=== PATIENT | female | born 1960 | race Two or more races ===

== ENCOUNTER 2017-06-10 17:02 | Emergency (ER) | payer SELFPAY ==
[~2017-06-10] VITALS: Ht 165.1 cm; Wt 77.1 kg
[2017-06-10 17:07] VITALS: BP 108/65
[2017-06-10] MEDS ORDERED: Morphine Sulfate 4mg/ml Inj IVP ONE (17:30)
[2017-06-10 17:56] LABS: APPEARANCE,URINE CLEAR; BILIRUBIN, URINE 1+ (NEGATIVE); GLUCOSE, URINE (UA) NEGATIVE (NEGATIVE); KETONES,URINE NEGATIVE (NEGATIVE); LEUKOCYTE ESTERASE ,URINE 3+ (NEGATIVE); NITRITE,URINE NEGATIVE (NEGATIVE); PH,URINE 6 (4.5-8.0); PROTEIN,URINE NEGATIVE (NEGATIVE); UROBILINOGEN,URINE 1 MG/DL (0.0-1.0)
[2017-06-10 17:58] LABS: BASOPHILS % (AUTO) 0.6 % (0.0-2.0); EOSINOPHILS % (AUTO) 0.6 % (0.0-3.0); HEMATOCRIT 43.7 % (37.0-47.0); HEMOGLOBIN 13.8 G/DL (12.0-16.0); LYMPHOCYTES % (AUTO) 9.5 % (20.0-45.0); MEAN CORPUSCULAR VOLUME 91 FL (80-99); MONOCYTES % (AUTO) 5.5 % (1.0-10.0); NEUTROPHILS % (AUTO) 83.7 % (45.0-75.0); PLATELET COUNT 180 K/UL (150-450); RED CELL DISTRIBUTION WIDTH 12.4 % (11.6-14.8); WHITE BLOOD COUNT 13.2 K/UL (4.8-10.8)
[2017-06-10 18:00] LABS: COLOR,URINE AMBER
[2017-06-10 18:14] LABS: INR 0.9 (0.9-1.1)
[2017-06-10 18:31] LABS: ANION GAP 11 mmol/L (5-15); BLOOD UREA NITROGEN 5 mg/dL (7-18); CALCIUM 9.2 MG/DL (8.5-10.1); CARBON DIOXIDE 26 MMOL/L (21-32); CHLORIDE 102 MMOL/L (98-107); CREATININE 0.7 MG/DL (0.55-1.30); POTASSIUM 3.6 MMOL/L (3.5-5.1); SODIUM 139 MMOL/L (136-145)
[2017-06-10 18:41] LABS: ALANINE AMINOTRANSFERASE 235 U/L (12-78); ALBUMIN 3.5 G/DL (3.4-5.0); ALBUMIN/GLOBULIN RATIO 0.8 (1.0-2.7); ALKALINE PHOSPHATASE 242 U/L (46-116); ASPARTATE AMINO TRANSFERASE 122 U/L (15-37)
[2017-06-10] MEDS ORDERED: cefTRIAXone 1 GM in NS 55 ML IVPB ONE (18:45)
[2017-06-10 18:46] LABS: BILIRUBIN,DIRECT 5.4 MG/DL (0.0-0.3)
[2017-06-10] MEDS ORDERED: NORCO 5-325 TA1 EAC1 ORAL (21:52)
[2017-06-10] MEDS ORDERED: CEPHALEXIN500 MG ORAL (21:52)
[2017-06-10] MEDS ORDERED: ZOFRAN4 M3 ORAL (21:52)
[2017-06-10] MEDS ORDERED: Zosyn 3.375gm/50ml Premix 50 ML IVPB ONE (22:00)
[2017-06-10 22:21] VITALS: BP 108/65
--- NOTE | 2017-06-10 22:46 | Emergency Room Report ---
History of Present Illness General Chief Complaint: Abdominal Pain Source: Patient, Family Member Present Illness HPI The patient is a 57 old female presenting for abdominal pain. She states that the pain began approximately one hour prior to arrival. Described as a 9/10 dull ache across the upper abdomen. No known provoking relieving factors. Pain does not radiate. It is constant. Has had cholecystectomy years prior. She denies any other symptoms including N, V, F, chills, diarrhea, constipation, rash, CP, SOB, back pain Allergies: Coded Allergies: No Known Allergies (Unverified , 06/10/17) Patient History Past Medical History: see triage record Past Surgical History: juan jose Pertinent Family History: none Reviewed Nursing Documentation: PMH: Agreed, PSxH: Agreed Nursing Documentation-PMH Past Medical History: No Stated History Review of Systems All Other Systems: negative except mentioned in HPI Physical Exam Vital Signs Date Time Temp Pulse Resp B/P (MAP) Pulse Ox O2 Delivery O2 Flow Rate FiO2 06/10/17 17:07 97.5 75 18 108/65 98 Room Air Sp02 EP Interpretation: reviewed, normal General Appearance: no apparent distress, alert, GCS 15, non-toxic Head: normocephalic, atraumatic Eyes: bilateral eye normal inspection, bilateral eye PERRL ENT: hearing grossly normal, normal pharynx, no angioedema, normal voice Neck: full range of motion, supple/symm/no masses Respiratory: chest non-tender, lungs clear, normal breath sounds, speaking full sentences Cardiovascular #1: regular rate, rhythm, no edema Gastrointestinal: normal bowel sounds, soft, no mass, no guarding, tenderness - RUQ, Epigastric, and LUQ Rectal: deferred Genitourinary: normal inspection, no CVA tenderness Musculoskeletal: back normal, gait/station normal, normal range of motion, non- tender Neurologic: alert, oriented x3, responsive, motor strength/tone normal, sensory intact, speech normal Psychiatric: judgement/insight normal, memory normal, mood/affect normal, no suicidal/homicidal ideation Skin: normal color, no rash, warm/dry, well hydrated Lymphatic: no adenopathy Medical Decision Making PA Attestation Dr. Acharya is my supervising physician. Patient management was discussed with my supervising physician Diagnostic Impression: Primary Impression: Urinary tract infection Qualified Codes: N30.01 - Acute cystitis with hematuria Additional Impression: Choledocholithiasis with obstruction ER Course The patient is a 57 old female presenting for abdominal pain. Differential diagnoses considered include but not limited to hepatitis, cholecystitis, gastritis, pancreatitis, appendicitis, UTI PE: Afebrile. NAD Abdomen is soft. Normal bowel sounds. Nondistended. There is tenderness to palpation across the upper abdomen of the left upper quadrant, epigastric, and right upper quadrant regions. No guarding. No CVA tenderness labs: CBC shows leukocytosis. CMP shows elevated AST and ALT. Elevated alk phos. UA consistent with UTI US: Hepatomegaly with echotexture. S/p cholecystectomy. Mild biliary dilatation , CBD 1.2cm. No calculi seen. CT: Hepatomegaly. Status post previous cholecystectomy. Mild intrahepatic and extrahepatic biliary dilatation which is of uncertain etiology. No radiopaque calculus or focal mass identified. The patient is given IV fluids, IV abx, and pain medication and is feeling better. She was told she needs to be admitted for further care and evaluation. She has declined being admitted. I used communication instructor service ID # [id number] for [place]i to [place] interpretation. I informed the patient of these results and the urgency of the matter. I informed her of risks of leaving including organ damage, organ failure, worsening infection, and . She still is asking to leave AMA. She is given prescriptions for antibiotics and zofran and needs emergent treatment. She is given ER precautions and told to return to any ER if she changes her mind as soon as possible. Laboratory Tests Test 06/10/17 17:30 White Blood Count 13.2 K/UL (4.8-10.8) H Red Blood Count 4.80 M/UL (4.20-5.40) Hemoglobin 13.8 G/DL (12.0-16.0) Hematocrit 43.7 % (37.0-47.0) Mean Corpuscular Volume 91 FL (80-99) Mean Corpuscular Hemoglobin 28.8 PG (27.0-31.0) Mean Corpuscular Hemoglobin Concent 31.6 G/DL (32.0-36.0) L Red Cell Distribution Width 12.4 % (11.6-14.8) Platelet Count 180 K/UL (150-450) Mean Platelet Volume 9.0 FL (6.5-10.1) Neutrophils (%) (Auto) 83.7 % (45.0-75.0) H Lymphocytes (%) (Auto) 9.5 % (20.0-45.0) L Monocytes (%) (Auto) 5.5 % (1.0-10.0) Eosinophils (%) (Auto) 0.6 % (0.0-3.0) Basophils (%) (Auto) 0.6 % (0.0-2.0) Prothrombin Time 9.9 SEC (9.30-11.50) Prothrombin Time INR 0.9 (0.9-1.1) PTT 29 SEC (23-33) Urine Color Brenna Urine Appearance Clear Urine pH 6 (4.5-8.0) Urine Specific [place] 1.010 (1.005-1.035) Urine Protein Negative (NEGATIVE) Urine Glucose (UA) Negative (NEGATIVE) Urine Ketones Negative (NEGATIVE) Urine Occult Blood 4+ (NEGATIVE) H Urine Nitrite Negative (NEGATIVE) Urine Bilirubin 1+ (NEGATIVE) H Urine Ictotest Positive Urine Urobilinogen 1 MG/DL (0.0-1.0) H Urine Leukocyte Esterase 3+ (NEGATIVE) H Urine RBC 2-4 /HPF (0 - 2) H Urine WBC Tntc /HPF (0 - 2) H Urine Squamous Epithelial Cells Occasional /LPF Urine Bacteria Few /HPF (NONE) Sodium Level 139 MMOL/L (136-145) Potassium Level 3.6 MMOL/L (3.5-5.1) Chloride Level 102 MMOL/L (98-107) Carbon Dioxide Level 26 MMOL/L (21-32) Anion Gap 11 mmol/L (5-15) Blood Urea Nitrogen 5 mg/dL (7-18) L Creatinine 0.7 MG/DL (0.55-1.30) Estimate Glomerular Filtration Rate > 60 mL/min (>60) Glucose Level 137 MG/DL (74-106) H Calcium Level 9.2 MG/DL (8.5-10.1) Total Bilirubin 6.0 MG/DL (0.2-1.0) H Direct Bilirubin 5.4 MG/DL (0.0-0.3) H Aspartate Amino Transferase (AST) 122 U/L (15-37) H Alanine Aminotransferase (ALT) 235 U/L (12-78) H Alkaline Phosphatase 242 U/L (46-116) H Total Protein 7.9 G/DL (6.4-8.2) Albumin 3.5 G/DL (3.4-5.0) Globulin 4.4 g/dL Albumin/Globulin Ratio 0.8 (1.0-2.7) L Lipase 121 U/L (73-393) Lab Results Impression CBC shows leukocytosis. CMP shows elevated AST and ALT. Elevated alk phos. UA consistent with UTI CT/MRI/US Diagnostic Results CT/MRI/US Diagnostic Results #1: Imaging Test Ordered: Abd US Impression Hepatomegaly with echotexture. S/p cholecystectomy. Mild biliary dilatation, CBD 1.2cm. No calculi seen. CT/MRI/US Diagnostic Results #2: Imaging Test Ordered: CT Abd/pelvis Impression Comparison: None available Bibasilar dependent atelectasis. Hepatomegaly. Status post previous cholecystectomy. Mild intrahepatic and extrahepatic biliary dilatation which is of uncertain etiology. No radiopaque calculus or focal mass identified. Pancreas and spleen are unremarkable. No evidence of renal calculi or hydronephrosis. Small right upper pole renal cyst. Urinary bladder is unremarkable. No bladder calculi. Post surgical changes along the anterior abdominal wall. No evidence of bowel obstruction or pneumoperitoneum. No abnormal inflammatory changes or fluid collections. Appendix is unremarkable. No evidence of abdominal aortic aneurysm. Last Vital Signs Date Time Temp Pulse Resp B/P (MAP) Pulse Ox O2 Delivery O2 Flow Rate FiO2 06/10/17 22:21 97.5 75 18 108/65 98 Room Air Status: improved Disposition: AGAINST MEDICAL ADVICE Condition: Serious Scripts Ondansetron* (ZOFRAN*) 4 Mg Tablet 4 MG ORAL Q6H Y for Nausea & Vomiting, #15 TAB Prov: YESSICA SANCHEZA. 06/10/17 Cephalexin* (KEFLEX*) 500 Mg Capsule 500 MG ORAL EVERY 12 HOURS, #14 CAP 0 Refills Prov: YESSICA SANCHEZ 06/10/17 Patient Instructions: Urinary Tract Infection, Abdominal Pain, Adult, Jaundice , Adult Additional Instructions: I have informed the patient of the risks associated with leaving AGAINST MEDICAL ADVICE including worsening infection, organ damage, organ failure, and even with communication instructor. Please return to the emergency department if you change your mind. YESSICA SANCHEZ Jun 10, 2017 22:46
--- NOTE | 2017-06-11 09:54 | Diagnostic Imaging Report ---
Indication: Abdominal pain Comparison: None Technique: Contiguous helical CT images through the abdomen pelvis was performed with intravenous contrast only. Oral contrast was not administered. Axial, coronal and sagittal reconstructions were reformatted. CT Dose: Total DLP: 965 mGycm; Total CTDI volume 70.3 Findings: The liver is enlarged in size in cranial caudal dimension measuring approximately 24 cm. There is evidence of prior cholecystectomy surgical clip seen in the gallbladder fossa. There is mild intrahepatic and moderate extrahepatic bile duct dilation which is of uncertain etiology. Common bile duct measures up to 11 mm in diameter. No radiopaque obstructing stone or focal mass is identified. Spleen is normal. Pancreas is normal. Portal vein is patent. Adrenal glands are normal. Kidneys are without hydronephrosis. No renal masses. Small right upper pole renal cyst. Urinary bladder is unremarkable. No bladder calculi. Postsurgical changes are seen along the anterior abdominal wall. No evidence of bowel obstruction or pneumoperitoneum. No abnormal inflammatory changes or fluid collections. Appendix is unremarkable. Aorta is of normal caliber. No significant lymphadenopathy. Lung bases are clear. Bibasilar atelectasis is present. Impression: Hepatomegaly. Status post previous cholecystectomy. Mild intrahepatic and moderate extrahepatic bile duct dilation is noted which is of uncertain etiology. No radiopaque calculus or focal mass identified. Postsurgical changes along the anterior abdominal wall. No evidence of bowel obstruction or pneumoperitoneum. No abnormal inflammatory changes or fluid collections. Appendix is unremarkable.
--- NOTE | 2017-06-13 08:35 | Diagnostic Imaging Report ---
Indication: PAIN abdominal pain, elevated liver function tests Technique: Coker-scale and duplex images of the upper abdomen were obtained Comparison: Reference made to CT scan of 2 hours earlier Findings: Gallbladder is surgically absent. Common bile duct measures 12 mm in diameter. There is mild central intrahepatic biliary ductal dilatation as well. Liver demonstrates coarsened echogenicity, no focal abnormality. It is enlarged Portal vein and hepatic veins are patent. Pancreas is unremarkable. Spleen is unremarkable. Left kidney measures 10.9 cm in length. Right kidney measures 10 cm length. Both kidneys demonstrate normal echogenicity. There is no hydronephrosis. Left kidney demonstrates multiple small cysts. No focal abnormality in the right . Non-aneurysmal abdominal aorta . Impression: Surgically absent gallbladder Dilated extrahepatic and mildly dilated central intrahepatic ducts. Possibly related to postcholecystectomy state as no downstream obstruction evident on recent CT scan. Nonetheless, downstream obstructive lesion cannot completely ruled out, and MRCP should be considered for further evaluation. Correlation with liver function tests is recommended. Nonspecific coarsened hepatic echogenicity, may indicate hepatocellular disease Incidental finding of left renal cysts
== END 2017-06-10 22:22 | disposition left against medical advice (07) ==
LOC: EDBD 17:25 → EMR 17:25
DX: N39.0 Urinary tract infection, site not specified (principal); K80.51 Calculus of bile duct without cholangitis or cholecystitis with obstruction; R10.10 Upper abdominal pain, unspecified; Z90.49 Acquired absence of other specified parts of digestive tract; R16.0 Hepatomegaly, not elsewhere classified
CPT/HCPCS: 36415; 74177; 76700; 80053; 81003; 82248; 83690; 85025; 85610; 85730; 87086; 96361; 96374; 96375; 99284; J0696; J2270; J2405; J2543; Q9967; S0028